=== PATIENT | female | born 1995 | race Caucasian/White ===

== ENCOUNTER 2020-09-04 00:37 | Emergency (ER) | payer BC ==
[~2020-09-04 00:37] MED LIST: ESTRADIOL1 MG PO; PROVERA 10 MG T10 MG PO
[2020-09-04 01:13] LABS: HEMOGLOBIN 12.4 gm/dl (12.3-15.3); RED BLOOD COUNT 4.2 M/UL (4.00-5.10); WHITE BLOOD COUNT 10.3 K/UL (4.5-11.0)
[2020-09-04 01:40] LABS: BUN/CREATININE RATIO 10 (0-10)
[2020-09-04] MEDS ORDERED: MACROBID 100 M100 MG PO (03:03)
== END 2020-09-04 03:35 | disposition home or self-care (01) ==
LOC: ER1 00:37
PROVIDERS: Physician Assistant
DX: R55 Syncope and collapse (principal); N39.0 Urinary tract infection, site not specified; Z88.2 Allergy status to sulfonamides
CPT/HCPCS: 71045; 80053; 80307; 81001; 82550; 82553; 83874; 83880; 84484; 84703; 85025; 85610; 85730; 93005; 99284